=== PATIENT | male | born 2005 | race Two or more races ===

== ENCOUNTER 2024-01-02 06:05 | Day surgery (SDC) | payer OTHER ==
[~2024-01-02] VITALS: Ht 172.7 cm; Wt 92.1 kg
[~2024-01-02 06:05] MED LIST: LISI2.5T47 PO
[2024-01-02] MEDS ORDERED: PIPERACILLIN-TAZOB 3.375GM 100 ML IV ONE (06:30)
[2024-01-02] MEDS ORDERED: LIDOCAINE W/ EPINEPHRINE 1% 20ML VIAL ONE (06:49)
[2024-01-02] MEDS ORDERED: SUCCINYLCHOLINE CHLORIDE 20 MG/ML 10ML VIAL IV ONE (06:52)
[2024-01-02] MEDS: HEPARIN SODIUM (PORCINE) 5000 UNITS/ML 1ML VIAL ONE (06:55)
[2024-01-02] MEDS ORDERED: fentaNYL CITRATE 100 MCG/2 ML VL ONE (06:58)
[2024-01-02] MEDS ORDERED: MEPERIDINE HCL (25 MG/ML) 1ML VIAL ONE ×2 (06:58→08:38)
[2024-01-02] MEDS ORDERED: PROPOFOL 10 MG/ML 20 ML IV ONE (06:58)
[2024-01-02] MEDS ORDERED: HEPARIN SODIUM (PORCINE) 5000 UNITS/ML 1ML VIAL SC ONE (07:15)
[2024-01-02] MEDS ORDERED: BUPIVACAINE HCL 50 ML ONE (07:16)
[2024-01-02] MEDS ORDERED: DexAMETHasone SOD PHOS 10MG/1ML VIAL INJ ONE (07:34)
[2024-01-02] MEDS ORDERED: ONDANSETRON HCL 4 MG/2 ML VIAL ONE (07:34)
[2024-01-02] MEDS ORDERED: ePHEDrine SULFATE 50 MG/ML AMP ONE (07:39)
[2024-01-02] MEDS: LIDOCAINE 1% HCL (LOCAL ANESTH.) INJ 20ML MDV ONE ×2 (08:16→08:17)
[2024-01-02] MEDS: METHYLENE BLUE 0.5% 5MG/ML 10ml AMP IV ONE (08:16)
[2024-01-02] MEDS: BUPIVACAINE 0.25% INJ 50ML VIAL ONE (08:17)
[2024-01-02 08:44] VITALS: PULSE 104; RESP 14; TEMP 97.8; O2SAT 98
[2024-01-02 08:45] VITALS: O2SAT 100
[2024-01-02] MEDS ORDERED: HYDROmorphone HCL 2 MG/ML VL/or syr IV PRN (09:00)
[2024-01-02] MEDS ORDERED: MEPERIDINE HCL (25 MG/ML) 1ML VIAL IV PRN (09:00)
[2024-01-02] MEDS ORDERED: ONDANSETRON HCL 4 MG/2 ML VIAL IV ONE (09:00)
[2024-01-02] MEDS ORDERED: ACETAMINOPHEN IV 1000 MG/100ML (10MG/ML) IV PRN (09:00)
[2024-01-02] MEDS ORDERED: HYDR-4902 PO (09:27)
--- NOTE | 2024-01-02 09:47 | DVHOP ---
DATE OF SURGERY: 01/02/2024 PREOPERATIVE DIAGNOSIS: Pilonidal cyst. POSTOPERATIVE DIAGNOSIS: Complex pilonidal cyst. PROCEDURE: Complex pilonidal cystectomy. SURGEON: Chato Garcia MD ASSISTANT TRACK COACH: None. ANESTHESIOLOGIST: Dr. Landry. ANESTHESIA: General by means of endotracheal intubation. INTRAOPERATIVE FINDINGS: Complex pilonidal cyst. ESTIMATED BLOOD LOSS: Minimal. INTRAVENOUS FLUIDS: Per anesthesia charting. URINE OUTPUT: Not recorded given Goldstein catheter was not inserted. DRAINS: None. IMPLANTS: None. SPECIMENS: Pilonidal cyst. COMPLICATIONS: None. DISPOSITION: Procedure well tolerated and transferred to recovery room in stable condition. INDICATION FOR PROCEDURE: The patient is an unfortunate 18-year-old male with a complex pilonidal cyst. Based on the above-mentioned information, he was recommended to undergo a pilonidal cystectomy. The procedure, risks, and benefits were explained in detail and extensive fashion. All of his questions were answered. He understood and agreed to proceed. DESCRIPTION OF PROCEDURE: The patient was taken to the operating room. Anesthesia was induced on the stretcher and he was then placed in the prone jackknife position paying careful attention on providing adequate positioning as well as padding to prevent any potential injuries. The buttocks were clipped from all hair surrounding the surgical field. The buttocks were taped to the side of the bed in order to provide retraction. The area was widely prepped and draped in usual sterile fashion. The patient received prophylactic antibiotics as well as prophylactic heparin. My attention was directed towards the sacral region, identifying a pilonidal cyst with multiple sinuses extending to the near periphery of the posterior midline of the anus. Local anesthesia was injected around the pilonidal cyst. Using methylene blue with an Angiocath, all of the sinuses were cannulated and methylene blue was infused into the sinuses in order to delineate the cyst from surrounding subcutaneous tissue. An elliptical incision was made around the pilonidal cyst and all sinuses without incorporating the anal sphincter. The dermis and subcutaneous tissue were incised circumferentially around the cyst to the presacral fascia. The pilonidal cystectomy was successfully completed without injury to the anal sphincter. The wound was copiously irrigated. All the fluid was evacuated. There was no active bleeding. Hemostasis had already been achieved with electrocautery. The wound was then closed with multiple 0 Vicryl sutures for the deep tissue and then 2-0 Vicryl sutures for the superficial subcutaneous tissue and dermis. The skin was then closed with several interrupted mattress sutures using 2-0 nylon sutures. The wound was washed and dried. Sterile dressings were applied. The patient tolerated well procedure. There were no complications. He was successfully extubated in the operating room and transferred to recovery room in stable condition. MD CONY Iglesias/VICTOR MANUEL TID: [id number] RECEIPT: [id number]
[2024-01-02 09:59] VITALS: BP 135/85; PULSE 94; RESP 13
[2024-01-02 10:00] VITALS: O2SAT 100
== END 2024-01-02 10:00 | disposition home or self-care (01) ==
LOC: SUR 06:05
DX: L05.91 Pilonidal cyst without abscess (principal); F17.210 Nicotine dependence, cigarettes, uncomplicated; I10 Essential (primary) hypertension; Z79.899 Other long term (current) drug therapy
CPT/HCPCS: 11771; 88305; J0330; J1100; J1644; J2003; J2175; J2405; J2543; J2704; J3010; J3490; Q9968